=== PATIENT | male | born 1970 | race Caucasian/White ===

== ENCOUNTER → 2017-08-26 | Day surgery (SDC) | payer OTHER ==
[~2017-08-26] MED LIST: ACETAMINOPHEN TAB 500 MG TAB PO ONE; DEXAMETHASONE SOD PHOSPHATE 10 MG/ML 1 ML VIAL IV ONE; HYDROcodone/APAP 7.5-325MG 1 EACH TAB PO ONE; HYDROmorphone 0.5 MG/0.5 ML SYRINGE IVP PRN; LACTATED RINGERS 1,000 ML IV ONE; LACTATED RINGERS 1,000 ML IV SCH; LIDOCAINE 1% 20 ML VIAL (10MG/ML) FOR IV START INTRADERMA ONE; LIDOCAINE 1% INJ 10MG/ML (20 ML MDV) ONE; LIDOCAINE 2%-EPI 1:100,000 20 ML VIAL ONE; MIDAZOLAM 2 MG/2 ML VIAL IVP ONE; MIDAZOLAM 2 MG/2 ML VIAL ONE; ONDANSETRON 4 MG/2 ML VIAL IVP ONE; PROPOFOL 10 MG/ML 20 ML VIAL IV ONE; ROPIVACAINE 5 MG/ML 30 ML VIAL ONE; SUCCINYLCHOLINE CHLORIDE 100 MG/5 ML SYR IV ONE; ePHEDrine SULFATE/0.9% NACL/PF 50 MG/5 ML SYRINGE IV ONE; fentaNYL (PF) 50 MCG/ML 2 ML AMP IVP ONE; fentaNYL (PF) 50 MCG/ML 2 ML AMP ONE
[2017-08-26 12:54] VITALS: TEMP 97.5
--- NOTE | 2017-08-26 13:16 | P.ONQ ---
Anesthesiology Proc Note - PNB - Peripheral Nerve Block Performed Right Interscalene Single Time Out Performed: Yes Procedure Start Time: 10:55 Indication: Acute Post-Operative Pain, Analgesia Specifically requested for management of pain by DrJerome: Darien Mercado Sedation Type: Sedate with meaningful contact maintained Preparation: Sterile Prep Position: Supine Catheter: None Needle Types: Other (see comment) (pajunk) Needle Size: 50mm (2") Needle Gauge: 21 Technique: Ultrasound Injectate: 0.5% Ropivacaine (see comment for volume) (30) Blood Aspirated: No Pain Paresthesia on Injection Noted: No Resistance on Injection: Normal Events: Uneventful and Well Tolerated
[2017-08-26 13:43] VITALS: PULSE 71
[2017-08-26 13:54] VITALS: BP 147/99; RESP 18
--- NOTE | 2017-08-26 14:37 | OP ---
OPERATIVE REPORT PROCEDURE: 08/26/2017. SURGEON: Darien Mercado M.D. BUSHLER: Ej MEZA. PREOPERATIVE DIAGNOSES: 1. Right shoulder rotator cuff tear. 2. Right shoulder to superior labral tear. 3. Right shoulder subacromial impingement. POSTOPERATIVE DIAGNOSES: 1. Right shoulder partial tear of the articular surface of the anterior supraspinatus and at least 50% of the tendon was intact without evidence of tearing. 2. Right shoulder type 2 displaced superior labral tear. 3. Right shoulder partial tearing of the intra-articular portion of the long head of the biceps tendon. 4. Right shoulder type 2 anterolateral acromial spur. 5. Right shoulder dense subacromial adhesions and bursitis. PROCEDURE PERFORMED: 1. Right shoulder arthroscopic debridement of the partial articular surface rotator cuff tear. 2. Right shoulder arthroscopic biceps tenotomy. 3. Right shoulder arthroscopic anterior superior and posterior labral debridement. 4. Right shoulder arthroscopic acromioplasty. 5. Right shoulder arthroscopic subacromial lysis of adhesions. ANESTHESIA: General endotracheal anesthesia. ESTIMATED BLOOD LOSS: Minimal. TOURNIQUET: None. DRAINS: None. COMPLICATIONS: None apparent. DISPOSITION: Postanesthesia care unit. EXAMINATION: Under anesthesia, right shoulder elevation 150 degrees, external rotation was at 40 degrees, external rotation at 90 degrees abduction was 90 degrees, internal rotation at 90 degrees abduction was 60 degrees, sulcus less than 1 cm, anterior translation of the glenoid face, posterior translation glenoid face. ARTHROSCOPIC FINDINGS: Right shoulder: 1. Superior labrum type 2 displaced superior labral tear tearing both anterior post of the biceps anchor. The biceps anchor was not firmly intact. There is also fairly high-grade partial tearing of the intra-articular portion of long head of the biceps tendon. 2. Anterior inferior labrum, normal glenoid labral attachment. 3. Posterior labrum tearing of the posterior labrum from the 9 o'clock position up to the 12 o'clock position on the glenoid face. 4. Humeral head cartilage was normal. 5. Rotator cuff partial thickness tear of the articular surface of the anterior aspect of the supraspinatus. This was approximately 50% tear. There was no evidence of tearing of the subscapularis or the bursal surface of the supraspinatus and infraspinatus. 6. Glenoid face card was normal. 7. Subacromial space: Significant fraying of the undersurface of the coracoacromial ligament with a type 2 anterolateral acromial spur. Also dense subacromial bursitis and adhesions. INDICATIONS: Otilio is a very pleasant 47-year-old male who injured his right shoulder at work. He has noted weakness as well as significant pain in the shoulder. He has been through fairly significant course of treatment of this point. Physical examination and MRI reveal tearing of the superior labrum as well as a suggestion of a rotator cuff tear. At this point, he feels that he has failed nonoperative treatment and would like to proceed with operative intervention. Long discussion was held with the patient with regard to treatment options. The risks of procedure were all discussed with him in detail. These risks included, but were not limited to risk of infection, nerve damage, bleeding, pain, and a small risk of deep vein thrombosis which could lead to fatal pulmonary embolism. Further risks include lack of healing of the rotator cuff and the possibility for biceps contour change with a biceps tenotomy. The patient understands the operation as well as the fact that there was no guarantee of improvement of his symptoms. Appropriate informed consent was obtained. DESCRIPTION OF PROCEDURE: The patient identified in the preoperative holding area. Surgical site was marked by both the patient and myself. He was given 3 grams of Ancef IV for prophylactic purposes. He was then transported to the operative suite, where he was placed supine on the operative table. The patient was then intubated endotracheally and received general anesthesia throughout the operative procedure. Examination under anesthesia was then performed and the findings noted above. The patient was then placed into the beach chair position well-padded in preparation for surgery. Great care was also taken to ensure the cervical spine is in neutral alignment well-padded and maintained that way throughout the operative procedure. Great care was also taken to ensure that his legs were appropriately padded as well. The patient's right upper extremity was then prepped and draped in usual sterile fashion. Standard surgical pause undertaken to ensure that appropriate preoperative antibiotics were given and that we were operating the correct site. All staff in the room were in agreement we proceeded. The acromion as well as the AC joint coracoid marked with a surgical pen. The skin of the anticipated port sites were also marked with a surgical pen. The skin of the anticipated port sites were then injected with 0.25% Marcaine with epinephrine. I then proceeded to make a posterior portal. A 30 degree arthroscope was introduced in the glenohumeral joint through this portal. The arthroscopic pump pressure was set at 40 mmHg and maintained at that level throughout the entire case. Next utilizing an 18-gauge spinal needle with topical localized placement, the anterior superior portal was made. This was made just underneath the biceps tendon high in the rotator interval. A small 5.75 mm cannula was then placed and the outflow was then done through this cannula. Diagnostic arthroscopy of the shoulder was then performed. The findings noted above. Great care was taken to probe superior labral complex as well as the biceps anchor. The biceps anchor was not firmly attached. He had significant tearing of the superior labrum. This extended both anterior and posterior to biceps anchor. The intra- articular portion of long head of the biceps tendon did have fairly high-grade partial tearing as well. At this point, I proceeded with a biceps tenotomy. The biceps was tenotomized. There was attachment on the supraglenoid tubercle. This was done utilizing the [employer] wand. I then proceeded to debride the torn loose tissue of the superior labrum. This was debrided anteriorly superiorly and posteriorly back to stable tissue. I then inspected the rotator cuff from intra-articular. He did have a partial- thickness tear of the anterior aspect of the supraspinatus. This was debrided very gently from intra-articular utilizing synovial shaver. The infraspinatus and the supraspinatus did appear intact after debridement. I did murtaza this area with a suture to better evaluate this from the bursal surface. At this point time, no further work was deemed necessary from intra-articular. The arthroscope was removed from the glenohumeral joint and utilizing the same posterior skin incision was placed in the subacromial space. Next utilizing an 18-gauge spinal needle topically localized placement, the lateral portal was made under direct visualization. Subacromial bursectomy and lysis of adhesions was then performed utilizing synovial shaver as well as the Arthro[employer] wand. There was significant fraying of the undersurface of the coracoacromial ligament. This was taken down utilizing the Arthro[employer] wand. This exposed underlying type 2 anterolateral acromial spur. I then proceeded with an acromioplasty. Utilizing synovial shaver in a karlene-type fashion, the acromioplasty was completed. When the acromioplasty was complete, the arthroscope was placed in the lateral portal and shaver placed posteriorly to ensure there was adequate and coplanar with posterior aspect of the acromion. I then made a 4th portal off the anterolateral angle of the acromion. Again this was done after 1st localizing with an 18-gauge spinal needle. I then probed the entire rotator cuff and viewed it with the arthroscope in the lateral portal and moving the shoulder throughout full range of motion. There was no evidence of a bursal surface tearing of the rotator cuff. The area with the absorbable suture was probed. There seemed to be very robust rotator cuff tissue in this area. This was the most anterior aspect of the supraspinatus. At this point, I made a decision not to proceed with any sort of rotator cuff repair. At this point time no further work was deemed necessary. The shoulder was thoroughly irrigated and drained with an outflow cannula. The arthroscopic pump was removed from the shoulder. The arthroscopic portals were then closed with 3-0 nylon interrupted suture. Sterile compressive dressings were applied. Patient's right upper extremity was placed into a standard sling. All sponge and needle counts were deemed correct prior to closure. The patient tolerated the procedure without apparent complication. He was transferred recovery room in stable condition. MMODL / IJN: [id number] /
== END | disposition home or self-care (01) ==
LOC: OR 09:23
PROVIDERS: ATTEND Orthopaedic Surgery Sports Medicine
DX: S46.011A Strain of muscle(s) and tendon(s) of the rotator cuff of right shoulder, initial encounter (principal); X50.0XXA Overexertion from strenuous movement or load, initial encounter; S43.431A Superior glenoid labrum lesion of right shoulder, initial encounter; S46.111A Strain of muscle, fascia and tendon of long head of biceps, right arm, initial encounter; M75.51 Bursitis of right shoulder; M75.01 Adhesive capsulitis of right shoulder; M75.81 Other shoulder lesions, right shoulder; I10 Essential (primary) hypertension; G47.33 Obstructive sleep apnea (adult) (pediatric); Z99.89 Dependence on other enabling machines and devices; M10.9 Gout, unspecified; I48.91 Unspecified atrial fibrillation; Z79.01 Long term (current) use of anticoagulants; Z79.899 Other long term (current) drug therapy; Z88.1 Allergy status to other antibiotic agents
CPT/HCPCS: 29823; 64415; 84132; J2250; J1100; J0690; J2405; J2001; J3010; J2795; J0330; J2704

== ENCOUNTER → 2024-01-25 | Outpatient (CLI) | payer OTHER ==
--- NOTE | 2024-01-25 10:28 | XR ---
EXAMINATION TYPE: XR lumbar spine 2 or 3V DATE OF EXAM: 01/25/2024 CLINICAL HISTORY: Back pain TECHNIQUE: Three views of the lumbar spine are submitted. COMPARISON: None. FINDINGS: There are 5 lumbar type vertebral bodies identified. The lumbar spine shows satisfactory alignment w ithout evidence of acute fracture or dislocation. Straightening of the normal lumbar lordosis. Verteb ral body heights are within normal limits. Anterior osteophytosis at L3-L4. Disc space narrowing wi th endplate sclerosis at L5-S1. Multilevel facet arthropathy lower lumbar spine. The overlying soft tissue appears unremarkable. IMPRESSION: 1. No acute fracture or dislocation is seen in the lumbar spine. 2. Mild multilevel degenerative disc disease. [facility], , 01/25/2024 10:25 AM
== END | disposition home or self-care (01) ==
LOC: RADXRMAIN 09:33
PROVIDERS: ATTEND Family Medicine
DX: M51.360 Other intervertebral disc degeneration, lumbar region with discogenic back pain only (principal); M47.897 Other spondylosis, lumbosacral region
CPT/HCPCS: 72100